=== PATIENT | female | born 1990 | race Caucasian/White ===

== ENCOUNTER 2018-03-02 13:28 | Inpatient (IN) | payer OTHER ==
[2018-03-02] MEDS: morphine 2 MG INJ IV ×4 (14:26→17:16)
[2018-03-02] MEDS: SOD CHLORIDE 0.9% 1,000 ML IV (14:26)
[2018-03-02] MEDS: ONDANSETRON 4 MG INJ IV ×4 (14:26→20:53)
[2018-03-02 14:34] LABS: ADD MAN DIFF? NO
[2018-03-02 14:36] LABS: BASOPHIL # 0.1 10^3/ul (0.0-0.1); BASOPHILS % 0.4 % (0.0-2.0); EOSINOPHILS # 0.1 10^3/ul (0.0-0.5); HEMATOCRIT 40.4 % (37.0-47.0); HEMOGLOBIN 13.9 g/dl (12.0-16.0); LYMPHOCYTES # 1.4 10^3/ul (0.8-2.9); LYMPHOCYTES % 12.3 % (15.0-51.0); MEAN CORPUSCULAR HEMOGLOBIN 31.7 pg (29.0-33.0); MEAN CORPUSCULAR HGB CONC 34.4 g/dl (32.0-37.0); MEAN CORPUSCULAR VOLUME 92.2 fl (82.0-101.0); MEAN PLATELET VOLUME 9.4 fl (7.4-10.4); MONOCYTE # 0.5 10^3/ul (0.3-0.9); MONOCYTES % 4.9 % (0.0-11.0); PLATELET COUNT 365 10^3/UL (140-415); RED BLOOD COUNT 4.38 10^6/ul (4.20-5.40); RED CELL DISTRIBUTION WIDTH 12.1 % (11.5-14.5)
[2018-03-02 14:36] LABS: WHITE BLOOD COUNT 11.1 10^3/ul (4.8-10.8)
[2018-03-02 14:49] LABS: ADD UMIC YES; UR ASCORBIC ACID NEGATIVE (NEGATIVE); UR BACTERIA FEW /HPF (NONE SEEN); UR BILIRUBIN (Dip) NEGATIVE (NEGATIVE); UR BLOOD (Dip) 2+ mg/dL (NEGATIVE); UR CLARITY SLIGHTLY CLOUDY (CLEAR); UR COLOR YELLOW (YELLOW); UR GLUCOSE (Dip) NEGATIVE (NEGATIVE); UR KETONES (Dip) 1+ mg/dL (NEGATIVE); UR LEUKOCYTE ESTERASE (Dip) 3+ Leu/ul (NEGATIVE); UR NITRITE (Dip) NEGATIVE (NEGATIVE); UR RBC 8 /HPF (0-5); UR SPECIFIC GRAVITY (Dip) 1.009 (1.003-1.030); UR SQUAMOUS EPITHELIAL CELL FEW /HPF (FEW); UR TOTAL PROTEIN (Dip) NEGATIVE (NEGATIVE); UR UROBILINOGEN (Dip) NEGATIVE (NEGATIVE); UR WBC 39 /HPF (0-5)
[2018-03-02 14:51] LABS: INR 0.85; PROTIME 11.7 Sec (11.9-14.9); PT RATIO 0.9
[2018-03-02 14:54] LABS: ALANINE AMINOTRANSFERASE 66 IU/L (13-69); ALBUMIN 5.4 g/dl (3.3-4.9); ALKALINE PHOSPHATASE 58 IU/L (42-121); ANION GAP 12 (5-13); ASPARTATE AMINO TRANSFERASE 219 IU/L (15-46); BILIRUBIN,INDIRECT 0.3 mg/dl (0-1.1); BILIRUBIN,TOTAL 0.3 mg/dl (0.2-1.3); BLOOD UREA NITROGEN 5 mg/dl (7-20); CALCIUM 9.3 mg/dl (8.4-10.2); CARBON DIOXIDE 25 mmol/L (21-31); CHLORIDE 105 mmol/L (97-110); CREATININE 0.68 mg/dl (0.44-1.00); Estimated GFR > 60 mL/min (>60); GLUCOSE 94 mg/dl (70-220); LIPASE 163 U/L (23-300); POTASSIUM 3.5 mmol/L (3.5-5.1); SODIUM 142 mmol/L (135-144); TOTAL PROTEIN 8.1 g/dl (6.1-8.1)
[2018-03-02] MEDS: metroNIDAZOLE 500 MG/NS (PMX) 100 ML IVPB (15:23)
[2018-03-02] MEDS ORDERED: ACETAMINOPHEN 325 MG TAB PO ×2 (15:30→17:00)
[2018-03-02] MEDS: PIPER-TAZO 3.375 GM IV (PMX) 100 ML IVPB (15:36)
[2018-03-02] MEDS: CIPROFLOXACIN 400MG/D5W 200 ML IVPB (15:41)
[2018-03-02] MEDS ORDERED: NACL 0.9% 3 ML SYG IV (17:00)
[2018-03-02] MEDS: NS + KCL 20 MEQ 1,000 ML IV (17:59)
[2018-03-02] MEDS ORDERED: PIPER-TAZO 3.375 GM IV (PMX) 100 ML IVPB (18:00)
[2018-03-02] MEDS: LEVOFLOXACIN 750MG/D5W (PMX) 150 ML IVPB (18:08)
[2018-03-02] MEDS ORDERED: FENTAnyl 50 MCG/ML VIAL ×2 (19:50→20:42)
[2018-03-02] MEDS ORDERED: ROPIVACAINE 0.5 % 30 ML VIAL (19:50)
[2018-03-02] MEDS ORDERED: DIPHENHYDRAMINE 50 MG INJ IV (20:00)
[2018-03-02] MEDS ORDERED: MEPERIDINE 25 MG INJ IV (20:00)
[2018-03-02] MEDS ORDERED: METOCLOPRAMIDE 10 MG INJ IV (20:00)
[2018-03-02] MEDS ORDERED: HYDROmorphONE 1 MG/5 ML IV SYRINGE IV ×2 (20:00)
[2018-03-02] MEDS ORDERED: LIDOCAINE 2% (SDV) 5 ML INJ (20:00)
[2018-03-02] MEDS ORDERED: ONDANSETRON 4 MG INJ IV (20:00)
[2018-03-02] MEDS ORDERED: FENTAnyl 50 MCG/ML VIAL IV (20:00)
[2018-03-02] MEDS ORDERED: ALBUTEROL 0.083% (NEB) 2.5 MG/3 ML AMP HHN (20:00)
[2018-03-02] MEDS ORDERED: DESFLURANE 15 MIN (20:00)
[2018-03-02] MEDS ORDERED: PROPOFOL 20 ML (20:19)
[2018-03-02] MEDS ORDERED: ROCURONIUM 50 MG INJ (20:19)
[2018-03-02] MEDS ORDERED: SUCCINYLCHOLINE CHLORIDE 100 MG/5 ML SYG IV (20:19)
[2018-03-02] MEDS ORDERED: SUGAMMADEX SODIUM 200 MG/2 ML VIAL IV (20:20)
[2018-03-02] MEDS: LIDOCAINE 1% (MPF) 30 ML INJ INJ (20:21)
[2018-03-02] MEDS: BUPIVACAINE 0.25%/EPI (SDV) 10 ML INJ INJ (20:21)
[2018-03-02] MEDS ORDERED: KETOROLAC 30 MG INJ (20:49)
[2018-03-02] MEDS: FENTAnyl 50 MCG/ML VIAL IV ×2 (20:53→21:10)
[2018-03-02] MEDS: HYDROmorphONE 1 MG/5 ML IV SYRINGE IV ×2 (20:54→21:11)
[2018-03-02] MEDS ORDERED: LIDOCAINE 1% (STERILE-PAK) 30 ML INJ (21:13)
[2018-03-02] MEDS ORDERED: BUPIVACAINE 0.25%/EPI (SDV) 10 ML INJ (21:13)
[2018-03-02] MEDS: KETOROLAC 30 MG INJ IV (21:20)
[2018-03-02] MEDS: Metronidazole 500 MG in NS 100 ML IVPB (21:54)
[2018-03-02] MEDS: HYDROCODONE/APAP (5/325) TAB PO (23:24)
[2018-03-03] MEDS: NS + KCL 20 MEQ 1,000 ML IV ×4 (03:30→23:30)
[2018-03-03] MEDS: Metronidazole 500 MG in NS 100 ML IVPB ×3 (05:31→22:16)
[2018-03-03] MEDS: HYDROCODONE/APAP (5/325) TAB PO ×3 (05:31→21:00)
[2018-03-03 06:25] LABS: ADD MAN DIFF? NO
[2018-03-03 06:31] LABS: WHITE BLOOD COUNT 12.8 10^3/ul (4.8-10.8)
[2018-03-03 06:31] LABS: BASOPHILS % 0.2 % (0.0-2.0); EOSINOPHILS % 0.1 % (0.0-7.0); HEMATOCRIT 31.8 % (37.0-47.0); HEMOGLOBIN 10.7 g/dl (12.0-16.0); LYMPHOCYTES # 0.9 10^3/ul (0.8-2.9); LYMPHOCYTES % 6.9 % (15.0-51.0); MEAN CORPUSCULAR HEMOGLOBIN 31.3 pg (29.0-33.0); MEAN CORPUSCULAR HGB CONC 33.6 g/dl (32.0-37.0); MEAN PLATELET VOLUME 9.8 fl (7.4-10.4); MONOCYTE # 0.6 10^3/ul (0.3-0.9); MONOCYTES % 4.3 % (0.0-11.0); NEUTROPHIL # 11.2 10^3/ul (1.6-7.5); NEUTROPHILS % 88.1 % (39.0-77.0); PLATELET COUNT 270 10^3/UL (140-415); RED BLOOD COUNT 3.42 10^6/ul (4.20-5.40); RED CELL DISTRIBUTION WIDTH 12.4 % (11.5-14.5)
[2018-03-03 06:45] LABS: HEMOGLOBIN A1C 5.1 % (0-5.9)
[2018-03-03 07:38] LABS: ALANINE AMINOTRANSFERASE 54 IU/L (13-69); ALBUMIN 3.4 g/dl (3.3-4.9); ALBUMIN/GLOBULIN RATIO 1.25; ALKALINE PHOSPHATASE 45 IU/L (42-121); ANION GAP 15 (5-13); ASPARTATE AMINO TRANSFERASE 126 IU/L (15-46); BILIRUBIN,INDIRECT 0.4 mg/dl (0-1.1); BILIRUBIN,TOTAL 0.4 mg/dl (0.2-1.3); BLOOD UREA NITROGEN 4 mg/dl (7-20); CALCIUM 8.2 mg/dl (8.4-10.2); CARBON DIOXIDE 19 mmol/L (21-31); CHLORIDE 104 mmol/L (97-110); CREATININE 0.65 mg/dl (0.44-1.00); Estimated GFR > 60 mL/min (>60); GLUCOSE 95 mg/dl (70-220); MAGNESIUM 1.5 mg/dl (1.7-2.5); PHOSPHORUS 3.1 mg/dl (2.5-4.9); POTASSIUM 3.7 mmol/L (3.5-5.1); SODIUM 138 mmol/L (135-144); TOTAL PROTEIN 6.1 g/dl (6.1-8.1)
[2018-03-03] MEDS: morphine 2 MG INJ IV ×2 (08:02→19:47)
[2018-03-03] MEDS: KETOROLAC 30 MG INJ IV ×3 (09:47→22:21)
[2018-03-03] MEDS: MAGNESIUM SULFATE 3 GM in DEXTROSE 5% 100 ML IVPB (12:47)
[2018-03-03] MEDS: LEVOFLOXACIN 750MG/D5W (PMX) 150 ML IVPB (17:34)
[2018-03-03] MEDS: DOCUSATE SODIUM 100 MG CAP PO (22:16)
[2018-03-04] MEDS: HYDROCODONE/APAP (5/325) TAB PO ×4 (02:58→21:42)
[2018-03-04] MEDS: NS + KCL 20 MEQ 1,000 ML IV ×3 (02:59→13:49)
[2018-03-04] MEDS: KETOROLAC 30 MG INJ IV ×4 (04:27→23:56)
[2018-03-04] MEDS: Metronidazole 500 MG in NS 100 ML IVPB (06:17)
[2018-03-04 07:48] LABS: ADD MAN DIFF? NO
[2018-03-04 07:52] LABS: BASOPHILS % 0.3 % (0.0-2.0); EOSINOPHILS # 0.1 10^3/ul (0.0-0.5); EOSINOPHILS % 1.3 % (0.0-7.0); HEMATOCRIT 29.9 % (37.0-47.0); HEMOGLOBIN 9.9 g/dl (12.0-16.0); LYMPHOCYTES # 0.8 10^3/ul (0.8-2.9); LYMPHOCYTES % 7.7 % (15.0-51.0); MEAN CORPUSCULAR HEMOGLOBIN 31.7 pg (29.0-33.0); MEAN CORPUSCULAR HGB CONC 33.1 g/dl (32.0-37.0); MEAN CORPUSCULAR VOLUME 95.8 fl (82.0-101.0); MONOCYTE # 0.5 10^3/ul (0.3-0.9); MONOCYTES % 4.7 % (0.0-11.0); NEUTROPHIL # 8.7 10^3/ul (1.6-7.5); NEUTROPHILS % 85.7 % (39.0-77.0); PLATELET COUNT 251 10^3/UL (140-415); RED BLOOD COUNT 3.12 10^6/ul (4.20-5.40); RED CELL DISTRIBUTION WIDTH 12.7 % (11.5-14.5)
[2018-03-04 07:52] LABS: WHITE BLOOD COUNT 10.2 10^3/ul (4.8-10.8)
[2018-03-04 08:21] LABS: ALANINE AMINOTRANSFERASE 43 IU/L (13-69); ALKALINE PHOSPHATASE 43 IU/L (42-121); ANION GAP 14 (5-13); ASPARTATE AMINO TRANSFERASE 81 IU/L (15-46); BILIRUBIN,INDIRECT 0.3 mg/dl (0-1.1); BILIRUBIN,TOTAL 0.3 mg/dl (0.2-1.3); BLOOD UREA NITROGEN 2 mg/dl (7-20); CARBON DIOXIDE 18 mmol/L (21-31); CHLORIDE 109 mmol/L (97-110); CREATININE 0.62 mg/dl (0.44-1.00); Estimated GFR > 60 mL/min (>60); GLUCOSE 70 mg/dl (70-220); POTASSIUM 4.2 mmol/L (3.5-5.1); SODIUM 141 mmol/L (135-144)
[2018-03-04 08:41] LABS: MAGNESIUM 2.1 mg/dl (1.7-2.5)
[2018-03-04] MEDS: ONDANSETRON 4 MG INJ IV (16:48)
[2018-03-04] MEDS: DOCUSATE SODIUM 100 MG CAP PO (16:48)
[2018-03-04] MEDS: LEVOFLOXACIN 750MG/D5W (PMX) 150 ML IVPB (17:58)
[2018-03-05] MEDS: NS + KCL 20 MEQ 1,000 ML IV ×2 (01:47→12:20)
[2018-03-05] MEDS: HYDROCODONE/APAP (5/325) TAB PO (04:02)
[2018-03-05 06:17] LABS: ADD MAN DIFF? NO
[2018-03-05 06:31] LABS: HEMATOCRIT 29.1 % (37.0-47.0); HEMOGLOBIN 9.7 g/dl (12.0-16.0); MEAN CORPUSCULAR HEMOGLOBIN 31.4 pg (29.0-33.0); MEAN CORPUSCULAR HGB CONC 33.3 g/dl (32.0-37.0); MEAN CORPUSCULAR VOLUME 94.2 fl (82.0-101.0); RED BLOOD COUNT 3.09 10^6/ul (4.20-5.40)
[2018-03-05 06:31] LABS: WHITE BLOOD COUNT 10.2 10^3/ul (4.8-10.8)
[2018-03-05 06:32] LABS: BASOPHILS % 0.3 % (0.0-2.0); EOSINOPHILS # 0.2 10^3/ul (0.0-0.5); EOSINOPHILS % 2.4 % (0.0-7.0); LYMPHOCYTES # 1.1 10^3/ul (0.8-2.9); LYMPHOCYTES % 10.7 % (15.0-51.0); MEAN PLATELET VOLUME 9.6 fl (7.4-10.4); MONOCYTE # 0.5 10^3/ul (0.3-0.9); MONOCYTES % 5.1 % (0.0-11.0); NEUTROPHIL # 8.2 10^3/ul (1.6-7.5); NEUTROPHILS % 81.1 % (39.0-77.0); PLATELET COUNT 262 10^3/UL (140-415); RED CELL DISTRIBUTION WIDTH 12.5 % (11.5-14.5)
[2018-03-05 06:54] LABS: ANION GAP 8 (5-13); BLOOD UREA NITROGEN 2 mg/dl (7-20); CALCIUM 8.3 mg/dl (8.4-10.2); CARBON DIOXIDE 20 mmol/L (21-31); CHLORIDE 110 mmol/L (97-110); CREATININE 0.52 mg/dl (0.44-1.00); Estimated GFR > 60 mL/min (>60); GLUCOSE 100 mg/dl (70-220); POTASSIUM 4.2 mmol/L (3.5-5.1); SODIUM 138 mmol/L (135-144)
[2018-03-05] MEDS: KETOROLAC 30 MG INJ IV ×2 (07:07→13:18)
[2018-03-05] MEDS: DOCUSATE SODIUM 100 MG CAP PO (14:35)
== END 2018-03-05 17:40 | disposition home or self-care (01) | DRG 854 ==
LOC: FTE 13:28 → 2NE 15:59
PROC: 0DTJ4ZZ Resection of Appendix, Percutaneous Endoscopic Approach (ICD-10-PCS; principal; 2018-03-02 19:53)
DX: A41.9 Sepsis, unspecified organism (principal); K35.80 Unspecified acute appendicitis; N39.0 Urinary tract infection, site not specified; J45.20 Mild intermittent asthma, uncomplicated; D64.9 Anemia, unspecified; Z87.891 Personal history of nicotine dependence; Z87.11 Personal history of peptic ulcer disease
CPT/HCPCS: 36415; 74176; 80048; 80053; 81001; 81025; 83036; 83690; 83735; 84100; 85025; 85610; 85730; 88304; 96374; 99285-25

== ENCOUNTER 2018-10-17 15:20 | Emergency (ER) | payer OTHER | END 2018-10-17 16:05 | disposition home or self-care (01) | LOC: FTE 15:20 | DX: K08.89 Other specified disorders of teeth and supporting structures (principal) | CPT/HCPCS: 99283; Z7502 ==